=== PATIENT | male | born 1985 | race Caucasian/White ===

== ENCOUNTER 2018-04-30 18:38 | Emergency (ER) | payer MEDICAID ==
[~2018-04-30] VITALS: Ht 175.3 cm; Wt 91.2 kg
[2018-04-30 18:41] VITALS: BP 129/73
== END 2018-04-30 20:12 | disposition home or self-care (01) ==
LOC: ED 19:55
DX: Z00.00 Encounter for general adult medical examination without abnormal findings (principal); Z76.0 Encounter for issue of repeat prescription; Z20.6 Contact with and (suspected) exposure to human immunodeficiency virus [HIV]
CPT/HCPCS: 36415; 87491; 87591; 87806; 99283; G0475

== ENCOUNTER 2018-05-12 18:56 | Emergency (ER) | payer MEDICAID ==
[~2018-05-12] VITALS: Ht 177.8 cm; Wt 86.8 kg
[2018-05-12 19:01] VITALS: BP 148/91
== END 2018-05-12 19:43 | disposition home or self-care (01) ==
LOC: ED 19:40
DX: M25.512 Pain in left shoulder (principal); M54.5 Low back pain; Z76.0 Encounter for issue of repeat prescription
CPT/HCPCS: 99283